=== PATIENT | female | born 2000 | race Caucasian/White ===

== ENCOUNTER 2021-04-01 16:08 | Emergency (ER) | payer OTHER, SELFPAY ==
[2021-04-01] VITALS (8 sets, daily range): BP systolic 116–140; BP diastolic 68–84; PULSE 91–105; RESP 18–24; TEMP 36.6; O2SAT 98–100
[2021-04-01] MEDS: LORazepam 2 MG/ML INJ 1 MG IV (16:16)
--- NOTE | 2021-04-01 16:16 | DI.CT.S_ITS ---
PROCEDURE: CT ANGIO ABDOMEN PELVIS INDICATIONS: Pain/trauma TECHNIQUE: After the administration of intravenous contrast, 2.5 mm thick sections acquired from the diaphragm to the symphysis. 10 mm maximum-intensity projection (MIP) reformats were then acquired. For radiation dose reduction, the following was used: automated exposure control. COMPARISON: [facility], US, US ABDOMEN COMPLETE, 07/08/2020, 12:54. FINDINGS: Image quality: Excellent. Aorta: Normal Mesenteric arteries: Celiac trunk, superior and inferior mesenteric arteries appear patent. Right pelvic arteries: Normal. Left pelvic arteries: The arteries adjacent to the left proximal femur trauma are scrutinized. No findings arterial laceration can be seen. No findings of active extravasation can be seen. Extravascular soft tissues: Lung bases are clear. Heart size is normal. Liver is normal in size and enhancement. Gallbladder wall is not thickened. Biliary system is non dilated. Pancreas enhances normally. Spleen is normal in size and enhancement. No adrenal nodules. Kidneys are normal in size and enhancement, without hydronephrosis. Incidental note is made of a circumaortic left renal vein. Non opacified bowel loops are normal in wall thickness and caliber. No free fluid or air. No retroperitoneal or mesenteric adenopathy. The uterus appears normal for age. No adnexal masses are seen. No ventral hernias. No suspicious bony lesions. No vertebral body compression fractures. There is a prominently comminuted fracture of the left proximal femur within the intertrochanteric region and within the proximal shaft. Associated soft tissue swelling with hematoma and joint effusion can be seen. IMPRESSION: Comminuted fracture of the left proximal femoral shaft and the intertrochanteric region. No associated arterial injury can be seen. No findings of extravasation of contrast can be seen. Hematoma and joint effusion can be seen associated with the fracture. Incidental note is made of: Circumaortic left renal vein Dictated by: Mello Muhammad M.D. on 04/01/2021 at 16:05 Approved by: Mello Muhammad M.D. on 04/01/2021 at 16:09
[2021-04-01] MEDS: SODIUM CHLORIDE 0.9% 1,000 ML 1000 ML IV (16:18)
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
[2021-04-01 16:38] LABS: Add Manual Diff / Slide Review NO; Basophils Absolute Auto 0 /uL (0-100); Basophils Percent Auto 0.3 % (0-2); Eosinophils Absolute Auto 0 /uL (0-450); Eosinophils Percent Auto 0.3 % (2-4); Hemoglobin 11.6 g/dL (12.0-16.0); Lymphocytes Absolute Auto 1600 /uL (1100-4500); Lymphocytes Percent Auto 14.6 % (25-40); Mean Corpuscular Hemoglobin 28.6 PG (26-34); Mean Corpuscular Volume 86.5 fL (80-100); Monocytes Absolute Auto 800 /uL (0-900); Monocytes Percent Auto 7.1 % (3-14); Neutrophils Absolute Auto 8700 /uL (1500-7000); Neutrophils Percent Auto 77.7 % (50-75); Platelet Count 316 X10^3/uL (150-400); Red Blood Cell Count 4.05 X10^6/uL (4.0-5.2); Red Cell Distribution Width 12.8 % (11.6-14.8); White Blood Cell Count 11.1 X10^3/uL (4.5-11.0)
[2021-04-01] MEDS: fentaNYL 100 MCG/2 ML INJ IV ×2 (16:40→19:21)
[2021-04-01 16:46] LABS: Pregnancy Test Serum,Qual Negative (Negative)
[2021-04-01 16:47] LABS: Alanine Aminotransferase 16 IU/L (<35); Albumin 3.8 g/dL (3.5-5.0); Albumin Globulin Ratio 1.1 (1.0-2.8); Alkaline Phosphatase 45 U/L (38-126); Aspartate Aminotransferase 25 IU/L (14-36); BUN Creatinine Ratio 23.5 (6-22); Blood Urea Nitrogen 12 mg/dL (7-17); Calcium 8.7 mg/dL (8.4-10.2); Carbon Dioxide 23 mmol/L (22-32); Chloride 106 mmol/L (98-107); Estimated Glomerular Filt Rate > 60.0 mL/min (>60); Globulin 3.4 g/dL (1.7-4.1); Glucose 98 mg/dL (70-100); HEMOLYSIS < 15 (0-50); Potassium 3.7 mmol/L (3.4-5.1); Sodium 137 mmol/L (137-145); Total Protein 7.2 g/dL (6.3-8.2)
[2021-04-01 16:56] LABS: Bilirubin Total < 0.1 mg/dL (0.2-1.3)
[2021-04-01 17:18] LABS: COVID19 -Nasal RAPID Negative (Negative)
[2021-04-01] MEDS: diazePAM 10 MG/2 ML SYRINGE 5 MG IV (17:33)
[2021-04-01] MEDS: fentaNYL 100 MCG/2 ML INJ 50 MCG IV (18:13)
== END 2021-04-01 19:31 | disposition short-term general hospital (02) ==
PROVIDERS: Emergency Provider Emergency Medicine
DX: S72.92XA Unspecified fracture of left femur, initial encounter for closed fracture (principal); Z20.822 Contact with and (suspected) exposure to COVID-19; W22.8XXA Striking against or struck by other objects, initial encounter
CPT/HCPCS: 36415; 74174; 80053; 84703; 85025; 87635; 96374; 96375; 96376; 99284; C9803; J2060; J3010; J3360; Q9967

== ENCOUNTER 2023-10-01 07:30 | Outpatient (RCR) | payer OTHER, SELFPAY ==
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
--- NOTE | 2023-08-28 16:05 | PT.OIE ---
Current Diagnoses Other chronic pain (08/28/23) Pain in left knee (08/28/23) Personal history of (healed) traumatic fracture (08/28/23) Visit Care Team Role Provider Type BENJA Duran, [employer] [facility] Family Provider Non-Staff Primary Care Provider Specialty: Family Practice Address: [address], [address], [place], [address] Email: BENJA Castrejon Attending Provider Non-Staff Referring Provider Specialty: Family Practice Address: [address] [place], [address] Email: Physical Therapy Initial Evaluation PT-OP-A Visit Information Start: 08/28/23 16:04 Freq: Status: Active Protocol: Document 08/28/23 16:05 AM (Rec: 08/28/23 17:38 AM [id number]) Out-Patient Physical Therapy Visit Information Visit Information Visit Type Initial Evaluation Visit Start Time 16:06 Visit Stop Time 16:51 Total Visit Minutes 45 Visit Number 1 Evaluation Information Evaluation Date 08/28/23 PT-OP-B Current Condition Start: 08/28/23 16:04 Freq: Status: Active Protocol: Document 08/28/23 16:05 AM (Rec: 08/28/23 17:38 AM [id number]) Current Condition History of Current Condition Onset Date 2 years ago Current Complaints L knee pain History of Current Condition Pt with femur fracture 2 years ago. Pt was ziplining and the system failed, causing fracture. Pt reports that her L knee has been sore recently. Pain is primarily on the medial side of her knee. Pt reports that ascending stairs and squatting are painful. Pt reports that she has tried to workout or run, though her knee starts hurting and she quits. Prior Treatments and Tests Pt with recent MRI that was negative. Prior Functional Status Baseline Function- ADL's Independent Baseline Function- Mobility Independent Current Functional Impairments (Reported) Functional Limitations- Mobility/Gait PT reports that she feels that she can walk as long as she wants to, though might have pain after. Pt would like to be able to run for exercise, though this feels uncomfortable. 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 PT-OP-C Subjective Start: 08/28/23 16:04 Freq: Status: Active Protocol: Document 08/28/23 16:05 AM (Rec: 08/28/23 17:38 AM [id number]) Patient Questionnaires Lymphedema Life Impact Score Lymphedema Score 65 Lymphedema Impairment 60 to 79% Impaired (Score 61- 75) OP-PT Pain Assessment Location Left Medial Knee Intensity 4 Scale Used Numeric (0 - 10) Description Aching Frequency Frequent Pain Duration Pt reports that her knee has been bothering her less recently. Pain Aggravating Factors Activity,Exercise,Walking, Stair Climbing Pain Alleviating Factors Inactivity PT-OP-D Balance Start: 08/28/23 16:04 Freq: Status: Active Protocol: Document 08/28/23 16:05 AM (Rec: 08/28/23 17:38 AM [id number]) Balance Tests Single Limb Standing Single Limb- Right 30 Single Limb- Left 30-no pain, though more report of unstable feeling PT-OP-E Functional Tests Start: 08/28/23 16:04 Freq: Status: Active Protocol: Document 08/28/23 16:05 AM (Rec: 08/28/23 17:38 AM [id number]) Functional Tests 30 Second Sit to Stand Test Score 13 PT-OP-G Mobility & Gait Start: 08/28/23 16:04 Freq: Status: Active Protocol: Document 08/28/23 16:05 AM (Rec: 08/28/23 17:38 AM [id number]) OP Gait Assessment Gait Gait Assistance Required: Independent Assistive Devices Assistive Device None Comments Gait Comments femoral MR PT-OP-J Posture/Palpation/Skin Start: 08/28/23 16:04 Freq: Status: Active Protocol: Document 08/28/23 16:05 AM (Rec: 08/28/23 17:38 AM [id number]) Posture Evaluation Position Standing Hip Posture (L) Internally Rotated,(R) Internally Rotated Knee Posture (L) Genu Recurvatum,(R) Genu Recurvatum,(L) Ext. Tibial Torsion,(R) Ext. Tibial Torsion Palpation Assessment Location knee Palpation Location medial joint line tenderness, adductors Palpation Findings Soft Tissue Tightness, Tenderness PT-OP-K Range of Motion Start: 08/28/23 16:04 Freq: Status: Active Protocol: Document 08/28/23 16:05 AM (Rec: 08/28/23 17:38 AM [id number]) Hip Goniometric Range of Motion Hip Right Passive Internal Rotation 40 External Rotation 45 Comments Prone for IR/ER Left Passive Flexion w/Knee Flexed 115 Internal Rotation 40 External Rotation 35 Comments prone for IR/ER Knee Goniometric Range of Motion Knee Right Knee ROM WFL Yes Flexion Active (degrees) 130 Left Knee ROM WFL Yes Patient Position Supine Flexion Active (degrees) 126 Extension Active (degrees) 0 PT-OP-M Strength Start: 08/28/23 16:04 Freq: Status: Active Protocol: Document 08/28/23 16:05 AM (Rec: 08/28/23 17:38 AM [id number]) Hip Strength Hip Manual Muscle Testing Right Flexion (L2) 4 Good Abduction 3+ Fair+ Adduction 5 Normal External Rotation 4- Good- Internal Rotation 4- Good- Left Flexion (L2) 3+ Fair+ Abduction 3 Fair Adduction 4+ Good+ External Rotation 3 Fair Internal Rotation 3 Fair Comments Pain with hip flexion, IR/ER Knee Strength Knee Manual Muscle Testing Right Flexion (S2) 4+ Good+ Extension (L3) 4+ Good+ Left Flexion (S2) 4- Good- Extension (L3) 4 Good PT-OP-Q Treatments Start: 08/28/23 16:04 Freq: Status: Active Protocol: Document 08/28/23 16:05 AM (Rec: 08/28/23 17:38 AM [id number]) Therapeutic Exercises Supine Exercises Bridge Resistance manual abd resistance, GTB give at home Reps/Minutes 10 Prone Exercises Prone quad stretch Side left Equipment Used gait belt, Pt given theraband with loop for home Sidelying Exercises clamshell Side left Reps/Minutes x5 Comments produced piriformis pain with radicular symptom Standing Exercises Hip abduction standing Side left Reps/Minutes x2 Comments Increased glute pain Self-Care/Home Management Treatment Education Patient Education Home Exercise Program Other Education massage adductor muscle, HEP given for quad stretch and bridge PT-OP-T Assessment and Plan Start: 08/28/23 16:04 Freq: Status: Active Protocol: Document 08/28/23 16:05 AM (Rec: 08/28/23 17:38 AM [id number]) Physical Therapy Assessment Rehab Potential Rehabilitation Potential Good Evaluation Complexity Number of Personal Factors/Comorbidities 0 Number of Body Systems Impaired 1-2 Clinical Presentation at Evaluation Stable Impairments Impairments Activity Tolerance,Balance, Functional Activities, Functional Mobility,Gait,Pain, Posture,ROM,Soft Tissue Mobility,Strength Goals Hip strength Impairment Pt with 3/5 hip IR, ER and glute med Short Term Goal (STG) Pt with 4- hip IR/ER and glute med strength STG Duration 09/25/23 Water Truck Driver Goal (LTG) Pt with 4/5-4+/5 hip strength. LTG Duration 10/23/23 Running Impairment Pt unable to run without production of pain at medial knee. Short Term Goal (STG) Pt able to interval run for 1 mile without increase in L knee pain. STG Duration 09/25/23 Shelter Goal (LTG) Pt able to run 1-2 miles without increase in L knee pain. LTG Duration 10/23/23 LEFS Impairment Pt with score of 65/80 on IE. Water Truck Driver Goal (LTG) Pt with score of 75/80 on LEFS LTG Duration 10/23/23 Assessment Summary Assessment Yadira Camp presents to PT secondary to L knee medial knee pain. Pt with hx of L femur fracture. Pt demonstrates weakness at hip rotators and glute med on L compared to R. Pt demonstrates patellar crepitus with close chain knee flexion. Pt with stiffness at L quad, likely contributing to patellar symptoms. Pt challenged with strengthening of L hip, secondary to pain at L glutes. Pt demonstrates limitations in L hip and knee compared to R. Pt with tenderness at medial joint line and along medial adductors. Pt with minimal valgus with squat, though demonstrates slight weightshift to R when squatting. Pt would benefit from continued PT to progress L hip/knee strength to decrease pain with functional and recreational activities. Physical Therapy Plan Frequency and Duration Frequency of Treatment 2x/Week Duration of treatment (weeks) 8 Plan of Care Start Date 08/28/23 Plan of Care End Date 10/23/23 Therapeutic Interventions Therapeutic Interventions Balance Training,Gait Training ,Home Exercise Program,Joint Mobilizations,Manual Therapy, Neuromuscular Re-education, Patient/Caregiver Education, Self-Care/Home Management,Soft Tissue Mobilization,Taping, Therapeutic Activities, Therapeutic Exercises Modalities Cold Pack/Ice Massage,Electric Stimulation,Hot Packs, Ultrasound Next Visit Focus/Plan Next Note Type Treatment Note Next Visit Plan further assess gait, including jogging; progress hip strength as tolerated
--- NOTE | 2023-09-03 16:07 | PT.OTN ---
Current Diagnoses Other chronic pain (09/03/23) Pain in left knee (09/03/23) Personal history of (healed) traumatic fracture (09/03/23) Physical Therapy Treatment Note PT-OP-A Visit Information Start: 08/28/23 16:04 Freq: Status: Active Protocol: Document 09/03/23 16:07 AM (Rec: 09/03/23 17:14 AM [id number]) Out-Patient Physical Therapy Visit Information Visit Information Visit Type Treatment Note Visit Start Time 16:07 Visit Stop Time 16:52 Total Visit Minutes 45 Visit Number 2 PT-OP-B Current Condition Start: 08/28/23 16:04 Freq: Status: Active Protocol: Document 09/03/23 16:07 AM (Rec: 09/03/23 17:14 AM [id number]) Current Condition History of Current Condition Onset Date 2 years ago Current Complaints L knee pain History of Current Condition Pt with femur fracture 2 years ago. Pt was ziplining and the system failed, causing fracture. Pt reports that her L knee has been sore recently. Pain is primarily on the medial side of her knee. Pt reports that ascending stairs and squatting are painful. Pt reports that she has tried to workout or run, though her knee starts hurting and she quits. Prior Treatments and Tests Pt with recent MRI that was negative. PT-OP-C Subjective Start: 08/28/23 16:04 Freq: Status: Active Protocol: Document 09/03/23 16:07 AM (Rec: 09/03/23 17:14 AM [id number]) OP-PT Subjective Patient Comments Patient Comments Pt reports that she might have overdid it on the quad stretch the first day, but has improved since then. PT-OP-D Balance Start: 08/28/23 16:04 Freq: Status: Active Protocol: Document 08/28/23 16:05 AM (Rec: 08/28/23 17:38 AM [id number]) Balance Tests Single Limb Standing Single Limb- Right 30 Single Limb- Left 30-no pain, though more report of unstable feeling PT-OP-E Functional Tests Start: 08/28/23 16:04 Freq: Status: Active Protocol: Document 08/28/23 16:05 AM (Rec: 08/28/23 17:38 AM [id number]) Functional Tests 30 Second Sit to Stand Test Score 13 PT-OP-G Mobility & Gait Start: 08/28/23 16:04 Freq: Status: Active Protocol: Document 08/28/23 16:05 AM (Rec: 08/28/23 17:38 AM [id number]) OP Gait Assessment Gait Gait Assistance Required: Independent Assistive Devices Assistive Device None Comments Gait Comments femoral MR PT-OP-J Posture/Palpation/Skin Start: 08/28/23 16:04 Freq: Status: Active Protocol: Document 08/28/23 16:05 AM (Rec: 08/28/23 17:38 AM [id number]) Posture Evaluation Position Standing Hip Posture (L) Internally Rotated,(R) Internally Rotated Knee Posture (L) Genu Recurvatum,(R) Genu Recurvatum,(L) Ext. Tibial Torsion,(R) Ext. Tibial Torsion Palpation Assessment Location knee Palpation Location medial joint line tenderness, adductors Palpation Findings Soft Tissue Tightness, Tenderness PT-OP-K Range of Motion Start: 08/28/23 16:04 Freq: Status: Active Protocol: Document 08/28/23 16:05 AM (Rec: 08/28/23 17:38 AM [id number]) Hip Goniometric Range of Motion Hip Right Passive Internal Rotation 40 External Rotation 45 Comments Prone for IR/ER Left Passive Flexion w/Knee Flexed 115 Internal Rotation 40 External Rotation 35 Comments prone for IR/ER Knee Goniometric Range of Motion Knee Right Knee ROM WFL Yes Flexion Active (degrees) 130 Left Knee ROM WFL Yes Patient Position Supine Flexion Active (degrees) 126 Extension Active (degrees) 0 PT-OP-M Strength Start: 08/28/23 16:04 Freq: Status: Active Protocol: Document 08/28/23 16:05 AM (Rec: 08/28/23 17:38 AM [id number]) Hip Strength Hip Manual Muscle Testing Right Flexion (L2) 4 Good Abduction 3+ Fair+ Adduction 5 Normal External Rotation 4- Good- Internal Rotation 4- Good- Left Flexion (L2) 3+ Fair+ Abduction 3 Fair Adduction 4+ Good+ External Rotation 3 Fair Internal Rotation 3 Fair Comments Pain with hip flexion, IR/ER Knee Strength Knee Manual Muscle Testing Right Flexion (S2) 4+ Good+ Extension (L3) 4+ Good+ Left Flexion (S2) 4- Good- Extension (L3) 4 Good PT-OP-Q Treatments Start: 08/28/23 16:04 Freq: Status: Active Protocol: Document 09/03/23 16:07 AM (Rec: 09/03/23 17:14 AM [id number]) Cardio Equipment Treadmill Duration (Minutes) 5 Speed 2.3 Incline 2.5 Gym Equipment Shuttle Recovery Unilateral squat Resistance 37# Reps/Time 2x10 Bilateral squat Resistance 50# Reps/Time 1x10, ball in between knees to encourage VMO Therapeutic Exercises Supine Exercises Quad set Equipment Used towel at knee Reps/Minutes 10x3 sec Figure 4 stretch Reps/Minutes 2x30 sec Comments PT assist Bent knee fall out Resistance PTB Reps/Minutes 2x10 Comments cues for pelvic stabilization and to not push into painful range Bridge Resistance BTB Reps/Minutes x10 Standing Exercises standing gastroc stretch Side bilateral Reps/Minutes x30 sec Standing TKE Side left Resistance BTB Equipment Used ball and BTB Comments ball behind knee with cues for TKE control vs hyperextension Step-up Side bilateral Equipment Used 4 in Reps/Minutes x5 Comments increased medial knee pain with UE support PT-OP-T Assessment and Plan Start: 08/28/23 16:04 Freq: Status: Active Protocol: Document 09/03/23 16:07 AM (Rec: 09/03/23 17:14 AM [id number]) Physical Therapy Assessment Goals Hip strength Impairment Pt with 3/5 hip IR, ER and glute med Short Term Goal (STG) Pt with 4- hip IR/ER and glute med strength STG Duration 09/25/23 Halfway Goal (LTG) Pt with 4/5-4+/5 hip strength. LTG Duration 10/23/23 Running Impairment Pt unable to run without production of pain at medial knee. Short Term Goal (STG) Pt able to interval run for 1 mile without increase in L knee pain. STG Duration 09/25/23 Halfway Goal (LTG) Pt able to run 1-2 miles without increase in L knee pain. LTG Duration 10/23/23 LEFS Impairment Pt with score of 65/80 on IE. Food Service Manager Goal (LTG) Pt with score of 75/80 on LEFS LTG Duration 10/23/23 Assessment Summary Assessment Pt demonstrates difficulty with knee control, while avoiding hyperextension and locking. This improved with training today. Pt demonstrates weakness into hip ER ROM. Pt demonstrates stiffness at bilateral gastroc with L stiffer than R, which might contribute to tibial ER. PT encouraged pt to obtain off the shelf orthotics to improve ankle/foot control and decrease pronation. Pt would benefit from continued PT to progress L LE strength and mobility as tolerated. Physical Therapy Plan Frequency and Duration Frequency of Treatment 2x/Week Duration of treatment (weeks) 8 Plan of Care Start Date 08/28/23 Plan of Care End Date 10/23/23 Therapeutic Interventions Therapeutic Interventions Balance Training,Gait Training ,Home Exercise Program,Joint Mobilizations,Manual Therapy, Neuromuscular Re-education, Patient/Caregiver Education, Self-Care/Home Management,Soft Tissue Mobilization,Taping, Therapeutic Activities, Therapeutic Exercises Modalities Cold Pack/Ice Massage,Electric Stimulation,Hot Packs, Ultrasound Next Visit Focus/Plan Next Note Type Treatment Note Next Visit Plan Trial KT, continue to improve knee control with decreased hyperextension, increase L hip ER mobility and strength as tolerated
--- NOTE | 2023-09-05 16:48 | PT.OTN ---
Current Diagnoses Other chronic pain (09/05/23) Pain in left knee (09/05/23) Personal history of (healed) traumatic fracture (09/05/23) Physical Therapy Treatment Note PT-OP-A Visit Information Start: 08/28/23 16:04 Freq: Status: Active Protocol: Document 09/05/23 16:06 AM (Rec: 09/05/23 17:00 AM [id number]) Out-Patient Physical Therapy Visit Information Visit Information Visit Type Treatment Note Visit Start Time 16:03 Visit Stop Time 16:48 Total Visit Minutes 45 Visit Number 3 PT-OP-B Current Condition Start: 08/28/23 16:04 Freq: Status: Active Protocol: Document 09/03/23 16:07 AM (Rec: 09/03/23 17:14 AM [id number]) Current Condition History of Current Condition Onset Date 2 years ago Current Complaints L knee pain History of Current Condition Pt with femur fracture 2 years ago. Pt was ziplining and the system failed, causing fracture. Pt reports that her L knee has been sore recently. Pain is primarily on the medial side of her knee. Pt reports that ascending stairs and squatting are painful. Pt reports that she has tried to workout or run, though her knee starts hurting and she quits. Prior Treatments and Tests Pt with recent MRI that was negative. PT-OP-C Subjective Start: 08/28/23 16:04 Freq: Status: Active Protocol: Document 09/05/23 16:06 AM (Rec: 09/05/23 17:00 AM [id number]) OP-PT Subjective Patient Comments Patient Comments Pt reports that she had a sharp increase in pain today after lunch. She is unsure what triggered it, but it has been painful since. PT-OP-D Balance Start: 08/28/23 16:04 Freq: Status: Active Protocol: Document 08/28/23 16:05 AM (Rec: 08/28/23 17:38 AM [id number]) Balance Tests Single Limb Standing Single Limb- Right 30 Single Limb- Left 30-no pain, though more report of unstable feeling PT-OP-E Functional Tests Start: 08/28/23 16:04 Freq: Status: Active Protocol: Document 08/28/23 16:05 AM (Rec: 08/28/23 17:38 AM [id number]) Functional Tests 30 Second Sit to Stand Test Score 13 PT-OP-G Mobility & Gait Start: 08/28/23 16:04 Freq: Status: Active Protocol: Document 08/28/23 16:05 AM (Rec: 08/28/23 17:38 AM [id number]) OP Gait Assessment Gait Gait Assistance Required: Independent Assistive Devices Assistive Device None Comments Gait Comments femoral MR PT-OP-J Posture/Palpation/Skin Start: 08/28/23 16:04 Freq: Status: Active Protocol: Document 08/28/23 16:05 AM (Rec: 08/28/23 17:38 AM [id number]) Posture Evaluation Position Standing Hip Posture (L) Internally Rotated,(R) Internally Rotated Knee Posture (L) Genu Recurvatum,(R) Genu Recurvatum,(L) Ext. Tibial Torsion,(R) Ext. Tibial Torsion Palpation Assessment Location knee Palpation Location medial joint line tenderness, adductors Palpation Findings Soft Tissue Tightness, Tenderness PT-OP-K Range of Motion Start: 08/28/23 16:04 Freq: Status: Active Protocol: Document 08/28/23 16:05 AM (Rec: 08/28/23 17:38 AM [id number]) Hip Goniometric Range of Motion Hip Right Passive Internal Rotation 40 External Rotation 45 Comments Prone for IR/ER Left Passive Flexion w/Knee Flexed 115 Internal Rotation 40 External Rotation 35 Comments prone for IR/ER Knee Goniometric Range of Motion Knee Right Knee ROM WFL Yes Flexion Active (degrees) 130 Left Knee ROM WFL Yes Patient Position Supine Flexion Active (degrees) 126 Extension Active (degrees) 0 PT-OP-M Strength Start: 08/28/23 16:04 Freq: Status: Active Protocol: Document 08/28/23 16:05 AM (Rec: 08/28/23 17:38 AM [id number]) Hip Strength Hip Manual Muscle Testing Right Flexion (L2) 4 Good Abduction 3+ Fair+ Adduction 5 Normal External Rotation 4- Good- Internal Rotation 4- Good- Left Flexion (L2) 3+ Fair+ Abduction 3 Fair Adduction 4+ Good+ External Rotation 3 Fair Internal Rotation 3 Fair Comments Pain with hip flexion, IR/ER Knee Strength Knee Manual Muscle Testing Right Flexion (S2) 4+ Good+ Extension (L3) 4+ Good+ Left Flexion (S2) 4- Good- Extension (L3) 4 Good PT-OP-Q Treatments Start: 08/28/23 16:04 Freq: Status: Active Protocol: Document 09/05/23 16:06 AM (Rec: 09/05/23 17:00 AM [id number]) Cardio Equipment Bicycle (Upright) Duration (Minutes) 5 Resistance 7 Seat Position 3 Gym Equipment Shuttle Recovery Unilateral squat Resistance 37#-25 Reps/Time x10, knee pain with 37# today, therefore decreased Bilateral squat Resistance 50# Reps/Time 2x10, ball in between knees to encourage VMO Therapeutic Exercises Supine Exercises Quad set Equipment Used towel at knee Reps/Minutes 10x3 sec Bent knee fall out Resistance Deuel TB Reps/Minutes 2x10 Comments cues for pelvic stabilization and to not push into painful range Bridge Resistance Deuel TB Reps/Minutes x10 Standing Exercises Hip extension Side bilateral Equipment Used railing Reps/Minutes x10 standing gastroc stretch Standing Exercise Name and soleus Side bilateral Equipment Used TY Reps/Minutes 2x30 sec Hip abduction standing Side bilateral Equipment Used railing Reps/Minutes x10 Manual Therapy Treatment Soft Tissue Mobilization Quads Body Location Rolling L quads Mobilization Type Instrument Assisted,Rolling Intensity/Depth Moderate Manual Techniques Chris stretch Type Chris stretch Body Location Jacob quads/hip flexors Body Position Supine Reps/Duration 2x30 sec ea LE PT-OP-T Assessment and Plan Start: 08/28/23 16:04 Freq: Status: Active Protocol: Document 09/05/23 16:06 AM (Rec: 09/05/23 17:00 AM [id number]) Physical Therapy Assessment Goals Hip strength Impairment Pt with 3/5 hip IR, ER and glute med Short Term Goal (STG) Pt with 4- hip IR/ER and glute med strength STG Duration 09/25/23 Machine Heel Seat Laster Goal (LTG) Pt with 4/5-4+/5 hip strength. LTG Duration 10/23/23 Running Impairment Pt unable to run without production of pain at medial knee. Short Term Goal (STG) Pt able to interval run for 1 mile without increase in L knee pain. STG Duration 09/25/23 Machine Heel Seat Laster Goal (LTG) Pt able to run 1-2 miles without increase in L knee pain. LTG Duration 10/23/23 LEFS Impairment Pt with score of 65/80 on IE. Fpc Goal (LTG) Pt with score of 75/80 on LEFS LTG Duration 10/23/23 Assessment Summary Assessment Pt with improving awareness of TKE quad control. Pt with tenderness along distal quad. Pt with discomfort at medial knee with assessment of patellar mobility in all directions. Pt demonstrates stiffness of hip flexors/quad jacob, with L stiffer than R. Pt with reported reduction in pain following tx session today. KT test strip applied to L medial calf. Pt instructed to remove if itchy. Physical Therapy Plan Frequency and Duration Frequency of Treatment 2x/Week Duration of treatment (weeks) 8 Plan of Care Start Date 08/28/23 Plan of Care End Date 10/23/23 Therapeutic Interventions Therapeutic Interventions Balance Training,Gait Training ,Home Exercise Program,Joint Mobilizations,Manual Therapy, Neuromuscular Re-education, Patient/Caregiver Education, Self-Care/Home Management,Soft Tissue Mobilization,Taping, Therapeutic Activities, Therapeutic Exercises Modalities Cold Pack/Ice Massage,Electric Stimulation,Hot Packs, Ultrasound Next Visit Focus/Plan Next Note Type Treatment Note Next Visit Plan Trial KT, continue to improve knee control with decreased hyperextension, increase L hip ER mobility and strength as tolerated
--- NOTE | 2023-09-11 16:06 | PT.OTN ---
Current Diagnoses Other chronic pain (09/11/23) Pain in left knee (09/11/23) Personal history of (healed) traumatic fracture (09/11/23) Physical Therapy Treatment Note PT-OP-A Visit Information Start: 08/28/23 16:04 Freq: Status: Active Protocol: Document 09/11/23 16:08 AM (Rec: 09/11/23 17:06 AM [id number]) Out-Patient Physical Therapy Visit Information Visit Information Visit Type Treatment Note Visit Start Time 16:06 Visit Stop Time 16:51 Total Visit Minutes 45 Visit Number 4/15 PT-OP-B Current Condition Start: 08/28/23 16:04 Freq: Status: Active Protocol: Document 09/03/23 16:07 AM (Rec: 09/03/23 17:14 AM [id number]) Current Condition History of Current Condition Onset Date 2 years ago Current Complaints L knee pain History of Current Condition Pt with femur fracture 2 years ago. Pt was ziplining and the system failed, causing fracture. Pt reports that her L knee has been sore recently. Pain is primarily on the medial side of her knee. Pt reports that ascending stairs and squatting are painful. Pt reports that she has tried to workout or run, though her knee starts hurting and she quits. Prior Treatments and Tests Pt with recent MRI that was negative. PT-OP-C Subjective Start: 08/28/23 16:04 Freq: Status: Active Protocol: Document 09/11/23 16:08 AM (Rec: 09/11/23 17:06 AM [id number]) OP-PT Subjective Patient Comments Patient Comments Pt reports that she has not had pain since previous session. Pt reports that she has been focusing on decreasing knee hyperextension . PT-OP-D Balance Start: 08/28/23 16:04 Freq: Status: Active Protocol: Document 08/28/23 16:05 AM (Rec: 08/28/23 17:38 AM [id number]) Balance Tests Single Limb Standing Single Limb- Right 30 Single Limb- Left 30-no pain, though more report of unstable feeling PT-OP-E Functional Tests Start: 08/28/23 16:04 Freq: Status: Active Protocol: Document 08/28/23 16:05 AM (Rec: 08/28/23 17:38 AM [id number]) Functional Tests 30 Second Sit to Stand Test Score 13 PT-OP-G Mobility & Gait Start: 08/28/23 16:04 Freq: Status: Active Protocol: Document 08/28/23 16:05 AM (Rec: 08/28/23 17:38 AM [id number]) OP Gait Assessment Gait Gait Assistance Required: Independent Assistive Devices Assistive Device None Comments Gait Comments femoral MR PT-OP-J Posture/Palpation/Skin Start: 08/28/23 16:04 Freq: Status: Active Protocol: Document 08/28/23 16:05 AM (Rec: 08/28/23 17:38 AM [id number]) Posture Evaluation Position Standing Hip Posture (L) Internally Rotated,(R) Internally Rotated Knee Posture (L) Genu Recurvatum,(R) Genu Recurvatum,(L) Ext. Tibial Torsion,(R) Ext. Tibial Torsion Palpation Assessment Location knee Palpation Location medial joint line tenderness, adductors Palpation Findings Soft Tissue Tightness, Tenderness PT-OP-K Range of Motion Start: 08/28/23 16:04 Freq: Status: Active Protocol: Document 08/28/23 16:05 AM (Rec: 08/28/23 17:38 AM [id number]) Hip Goniometric Range of Motion Hip Right Passive Internal Rotation 40 External Rotation 45 Comments Prone for IR/ER Left Passive Flexion w/Knee Flexed 115 Internal Rotation 40 External Rotation 35 Comments prone for IR/ER Knee Goniometric Range of Motion Knee Right Knee ROM WFL Yes Flexion Active (degrees) 130 Left Knee ROM WFL Yes Patient Position Supine Flexion Active (degrees) 126 Extension Active (degrees) 0 PT-OP-M Strength Start: 08/28/23 16:04 Freq: Status: Active Protocol: Document 08/28/23 16:05 AM (Rec: 08/28/23 17:38 AM [id number]) Hip Strength Hip Manual Muscle Testing Right Flexion (L2) 4 Good Abduction 3+ Fair+ Adduction 5 Normal External Rotation 4- Good- Internal Rotation 4- Good- Left Flexion (L2) 3+ Fair+ Abduction 3 Fair Adduction 4+ Good+ External Rotation 3 Fair Internal Rotation 3 Fair Comments Pain with hip flexion, IR/ER Knee Strength Knee Manual Muscle Testing Right Flexion (S2) 4+ Good+ Extension (L3) 4+ Good+ Left Flexion (S2) 4- Good- Extension (L3) 4 Good PT-OP-Q Treatments Start: 08/28/23 16:04 Freq: Status: Active Protocol: Document 09/11/23 16:08 AM (Rec: 09/11/23 17:06 AM [id number]) Cardio Equipment Recumbent Bicycle Duration (Minutes) 5 Resistance 7 Seat Position 3 Gym Equipment Shuttle Recovery Unilateral squat Resistance 25 Reps/Time x10, knee pain with 37# today, therefore decreased Bilateral squat Resistance 50# Reps/Time 2x10, ball in between knees to encourage VMO Therapeutic Exercises Supine Exercises SAQ Supine Exercise Name Caused patellar tendon pain Figure 4 stretch Reps/Minutes 2x30 sec Comments PT assist Bent knee fall out Resistance [place] TB Reps/Minutes 2x10 Comments cues for pelvic stabilization and to not push into painful range Bridge Resistance [place] TB Reps/Minutes x10 Standing Exercises Hip extension Side bilateral Resistance [place] TB Equipment Used railing Reps/Minutes x10 Hip abduction standing Side bilateral Resistance [place] TB Equipment Used railing Reps/Minutes x10 Manual Therapy Treatment Soft Tissue Mobilization Quads Body Location Rolling L quads Mobilization Type Instrument Assisted,Rolling Intensity/Depth Moderate Taping L patellar stab Treatment Focus patellar stab Type of Tape Kinesio Tape Skin Inspection Pt without adverse reaction from KT test strip Comments 1 I bands PT-OP-T Assessment and Plan Start: 08/28/23 16:04 Freq: Status: Active Protocol: Document 09/11/23 16:08 AM (Rec: 09/11/23 17:06 AM [id number]) Physical Therapy Assessment Goals Hip strength Impairment Pt with 3/5 hip IR, ER and glute med Short Term Goal (STG) Pt with 4- hip IR/ER and glute med strength STG Duration 09/25/23 Power Chisel Operator Goal (LTG) Pt with 4/5-4+/5 hip strength. LTG Duration 10/23/23 Running Impairment Pt unable to run without production of pain at medial knee. Short Term Goal (STG) Pt able to interval run for 1 mile without increase in L knee pain. STG Duration 09/25/23 Power Chisel Operator Goal (LTG) Pt able to run 1-2 miles without increase in L knee pain. LTG Duration 10/23/23 LEFS Impairment Pt with score of 65/80 on IE. Mcc Goal (LTG) Pt with score of 75/80 on LEFS LTG Duration 10/23/23 Assessment Summary Assessment Pt tolerated PRE well today. Pt with reported patellar tendon pain with SAQ. Pt demonstrated PTP at L patellar tendon. Pt with improving control into TKE with shuttle squats. Pt demonstrates improving tolerance to glute strengthening on L. Pt would benefit from continued PT to progress L LE strength and functional mobility. Physical Therapy Plan Frequency and Duration Frequency of Treatment 2x/Week Duration of treatment (weeks) 8 Plan of Care Start Date 08/28/23 Plan of Care End Date 10/23/23 Therapeutic Interventions Therapeutic Interventions Balance Training,Gait Training ,Home Exercise Program,Joint Mobilizations,Manual Therapy, Neuromuscular Re-education, Patient/Caregiver Education, Self-Care/Home Management,Soft Tissue Mobilization,Taping, Therapeutic Activities, Therapeutic Exercises Modalities Cold Pack/Ice Massage,Electric Stimulation,Hot Packs, Ultrasound Next Visit Focus/Plan Next Note Type Treatment Note Next Visit Plan Trial KT, continue to improve knee control with decreased hyperextension, increase L hip ER mobility and strength as tolerated
--- NOTE | 2023-09-17 15:21 | PT.OTN ---
Current Diagnoses Other chronic pain (09/17/23) Pain in left knee (09/17/23) Personal history of (healed) traumatic fracture (09/17/23) Physical Therapy Treatment Note PT-OP-A Visit Information Start: 08/28/23 16:04 Freq: Status: Active Protocol: Document 09/17/23 15:21 AM (Rec: 09/17/23 16:13 AM [id number]) Out-Patient Physical Therapy Visit Information Visit Information Visit Type Treatment Note Visit Start Time 15:19 Visit Stop Time 16:02 Total Visit Minutes 43 Visit Number 03/17 PT-OP-B Current Condition Start: 08/28/23 16:04 Freq: Status: Active Protocol: Document 09/03/23 16:07 AM (Rec: 09/03/23 17:14 AM [id number]) Current Condition History of Current Condition Onset Date 2 years ago Current Complaints L knee pain History of Current Condition Pt with femur fracture 2 years ago. Pt was ziplining and the system failed, causing fracture. Pt reports that her L knee has been sore recently. Pain is primarily on the medial side of her knee. Pt reports that ascending stairs and squatting are painful. Pt reports that she has tried to workout or run, though her knee starts hurting and she quits. Prior Treatments and Tests Pt with recent MRI that was negative. PT-OP-C Subjective Start: 08/28/23 16:04 Freq: Status: Active Protocol: Document 09/17/23 15:21 AM (Rec: 09/17/23 16:13 AM [id number]) OP-PT Subjective Patient Comments Patient Comments Pt reports that she was a little sore over the weekend. She was playing with young niece and nephew, which required her to get on and off of the floor. Pt reports that her knee has felt good the last few days. PT-OP-D Balance Start: 08/28/23 16:04 Freq: Status: Active Protocol: Document 08/28/23 16:05 AM (Rec: 08/28/23 17:38 AM [id number]) Balance Tests Single Limb Standing Single Limb- Right 30 Single Limb- Left 30-no pain, though more report of unstable feeling PT-OP-E Functional Tests Start: 08/28/23 16:04 Freq: Status: Active Protocol: Document 08/28/23 16:05 AM (Rec: 08/28/23 17:38 AM [id number]) Functional Tests 30 Second Sit to Stand Test Score 13 PT-OP-G Mobility & Gait Start: 08/28/23 16:04 Freq: Status: Active Protocol: Document 08/28/23 16:05 AM (Rec: 08/28/23 17:38 AM [id number]) OP Gait Assessment Gait Gait Assistance Required: Independent Assistive Devices Assistive Device None Comments Gait Comments femoral MR PT-OP-J Posture/Palpation/Skin Start: 08/28/23 16:04 Freq: Status: Active Protocol: Document 08/28/23 16:05 AM (Rec: 08/28/23 17:38 AM [id number]) Posture Evaluation Position Standing Hip Posture (L) Internally Rotated,(R) Internally Rotated Knee Posture (L) Genu Recurvatum,(R) Genu Recurvatum,(L) Ext. Tibial Torsion,(R) Ext. Tibial Torsion Palpation Assessment Location knee Palpation Location medial joint line tenderness, adductors Palpation Findings Soft Tissue Tightness, Tenderness PT-OP-K Range of Motion Start: 08/28/23 16:04 Freq: Status: Active Protocol: Document 08/28/23 16:05 AM (Rec: 08/28/23 17:38 AM [id number]) Hip Goniometric Range of Motion Hip Right Passive Internal Rotation 40 External Rotation 45 Comments Prone for IR/ER Left Passive Flexion w/Knee Flexed 115 Internal Rotation 40 External Rotation 35 Comments prone for IR/ER Knee Goniometric Range of Motion Knee Right Knee ROM WFL Yes Flexion Active (degrees) 130 Left Knee ROM WFL Yes Patient Position Supine Flexion Active (degrees) 126 Extension Active (degrees) 0 PT-OP-M Strength Start: 08/28/23 16:04 Freq: Status: Active Protocol: Document 08/28/23 16:05 AM (Rec: 08/28/23 17:38 AM [id number]) Hip Strength Hip Manual Muscle Testing Right Flexion (L2) 4 Good Abduction 3+ Fair+ Adduction 5 Normal External Rotation 4- Good- Internal Rotation 4- Good- Left Flexion (L2) 3+ Fair+ Abduction 3 Fair Adduction 4+ Good+ External Rotation 3 Fair Internal Rotation 3 Fair Comments Pain with hip flexion, IR/ER Knee Strength Knee Manual Muscle Testing Right Flexion (S2) 4+ Good+ Extension (L3) 4+ Good+ Left Flexion (S2) 4- Good- Extension (L3) 4 Good PT-OP-Q Treatments Start: 08/28/23 16:04 Freq: Status: Active Protocol: Document 09/17/23 15:21 AM (Rec: 09/17/23 16:13 AM [id number]) Cardio Equipment Bicycle (Upright) Duration (Minutes) 5 Resistance 7 Seat Position 3 Gym Equipment Shuttle Recovery Unilateral squat Resistance 25 Shuttle Recovery Platform Stable Bilateral squat Resistance 50# Reps/Time 2x10, ball in between knees to encourage VMO Therapeutic Exercises Standing Exercises Side step Side bilateral Resistance [place] TB Reps/Minutes 2x20 ft Hip extension Side bilateral Resistance [place] TB Equipment Used railing Reps/Minutes 2x10 standing gastroc stretch Standing Exercise Name and soleus Side bilateral Equipment Used TY Reps/Minutes 2x30 sec Hip abduction standing Side bilateral Resistance [place] TB Equipment Used railing Reps/Minutes 2x10 Manual Therapy Treatment Soft Tissue Mobilization Quads Body Location Rolling L quads Mobilization Type Instrument Assisted,Rolling Intensity/Depth Moderate Joint Mobilizations Patellar mob Joint L Direction Inf glide Grade III Body Position Supine Manual Techniques Chris stretch Type Chris stretch Body Location Jacob quads/hip flexors Body Position Supine Reps/Duration 2x30 sec ea LE PT-OP-T Assessment and Plan Start: 08/28/23 16:04 Freq: Status: Active Protocol: Document 09/17/23 15:21 AM (Rec: 09/17/23 16:13 AM [id number]) Physical Therapy Assessment Goals Hip strength Impairment Pt with 3/5 hip IR, ER and glute med Short Term Goal (STG) Pt with 4- hip IR/ER and glute med strength STG Duration 09/25/23 Correction Goal (LTG) Pt with 4/5-4+/5 hip strength. LTG Duration 10/23/23 Running Impairment Pt unable to run without production of pain at medial knee. Short Term Goal (STG) Pt able to interval run for 1 mile without increase in L knee pain. STG Duration 09/25/23 Correction Goal (LTG) Pt able to run 1-2 miles without increase in L knee pain. LTG Duration 10/23/23 LEFS Impairment Pt with score of 65/80 on IE. Crime Lab Technician Goal (LTG) Pt with score of 75/80 on LEFS LTG Duration 10/23/23 Assessment Summary Assessment Pt tolerated PRE well, without production of increased symptoms. Pt demonstrates continued stiffness at jacob hip flexors with manual stretching. Pt demonstrated femoral MR on L with trial of elliptical, though denied pain . Pt will return to PT later this week to continued to progress LE strength and mobility for higher level functional and recreational tasks. Physical Therapy Plan Frequency and Duration Frequency of Treatment 2x/Week Duration of treatment (weeks) 8 Plan of Care Start Date 08/28/23 Plan of Care End Date 10/23/23 Therapeutic Interventions Therapeutic Interventions Balance Training,Gait Training ,Home Exercise Program,Joint Mobilizations,Manual Therapy, Neuromuscular Re-education, Patient/Caregiver Education, Self-Care/Home Management,Soft Tissue Mobilization,Taping, Therapeutic Activities, Therapeutic Exercises Modalities Cold Pack/Ice Massage,Electric Stimulation,Hot Packs, Ultrasound Next Visit Focus/Plan Next Note Type Progress Note Next Visit Plan assess treadmill jogging intervals, reassess goals and progress, assess step up
--- NOTE | 2023-09-19 15:19 | PT.OTN ---
Current Diagnoses Other chronic pain (09/19/23) Pain in left knee (09/19/23) Personal history of (healed) traumatic fracture (09/19/23) Physical Therapy Treatment Note PT-OP-A Visit Information Start: 08/28/23 16:04 Freq: Status: Active Protocol: Document 09/19/23 15:19 AM (Rec: 09/19/23 16:26 AM [id number]) Out-Patient Physical Therapy Visit Information Visit Information Visit Type Progress Note Visit Start Time 15:19 Visit Stop Time 16:00 Total Visit Minutes 41 Visit Number 04/17 PT-OP-B Current Condition Start: 08/28/23 16:04 Freq: Status: Active Protocol: Document 09/03/23 16:07 AM (Rec: 09/03/23 17:14 AM [id number]) Current Condition History of Current Condition Onset Date 2 years ago Current Complaints L knee pain History of Current Condition Pt with femur fracture 2 years ago. Pt was ziplining and the system failed, causing fracture. Pt reports that her L knee has been sore recently. Pain is primarily on the medial side of her knee. Pt reports that ascending stairs and squatting are painful. Pt reports that she has tried to workout or run, though her knee starts hurting and she quits. Prior Treatments and Tests Pt with recent MRI that was negative. PT-OP-C Subjective Start: 08/28/23 16:04 Freq: Status: Active Protocol: Document 09/19/23 15:19 AM (Rec: 09/19/23 16:26 AM [id number]) OP-PT Subjective Patient Comments Patient Comments Pt reports that she feels stiff today, though reports that she feels stiff at her arms also. She is unsure of the cause. Pt reports that she feels that she has had increase clamshell mobility. PT-OP-D Balance Start: 08/28/23 16:04 Freq: Status: Active Protocol: Document 08/28/23 16:05 AM (Rec: 08/28/23 17:38 AM [id number]) Balance Tests Single Limb Standing Single Limb- Right 30 Single Limb- Left 30-no pain, though more report of unstable feeling PT-OP-E Functional Tests Start: 08/28/23 16:04 Freq: Status: Active Protocol: Document 08/28/23 16:05 AM (Rec: 08/28/23 17:38 AM [id number]) Functional Tests 30 Second Sit to Stand Test Score 13 PT-OP-G Mobility & Gait Start: 08/28/23 16:04 Freq: Status: Active Protocol: Document 08/28/23 16:05 AM (Rec: 08/28/23 17:38 AM [id number]) OP Gait Assessment Gait Gait Assistance Required: Independent Assistive Devices Assistive Device None Comments Gait Comments femoral MR PT-OP-J Posture/Palpation/Skin Start: 08/28/23 16:04 Freq: Status: Active Protocol: Document 08/28/23 16:05 AM (Rec: 08/28/23 17:38 AM [id number]) Posture Evaluation Position Standing Hip Posture (L) Internally Rotated,(R) Internally Rotated Knee Posture (L) Genu Recurvatum,(R) Genu Recurvatum,(L) Ext. Tibial Torsion,(R) Ext. Tibial Torsion Palpation Assessment Location knee Palpation Location medial joint line tenderness, adductors Palpation Findings Soft Tissue Tightness, Tenderness PT-OP-K Range of Motion Start: 08/28/23 16:04 Freq: Status: Active Protocol: Document 08/28/23 16:05 AM (Rec: 08/28/23 17:38 AM [id number]) Hip Goniometric Range of Motion Hip Right Passive Internal Rotation 40 External Rotation 45 Comments Prone for IR/ER Left Passive Flexion w/Knee Flexed 115 Internal Rotation 40 External Rotation 35 Comments prone for IR/ER Knee Goniometric Range of Motion Knee Right Knee ROM WFL Yes Flexion Active (degrees) 130 Left Knee ROM WFL Yes Patient Position Supine Flexion Active (degrees) 126 Extension Active (degrees) 0 PT-OP-M Strength Start: 08/28/23 16:04 Freq: Status: Active Protocol: Document 09/19/23 15:19 AM (Rec: 09/19/23 16:26 AM [id number]) Hip Strength Hip Manual Muscle Testing Left Flexion (L2) 4- Good- Abduction 3+ Fair+ External Rotation 3+ Fair+ Internal Rotation 3+ Fair+ Comments glute med 3+ No pain with IR/ER testing PT-OP-Q Treatments Start: 08/28/23 16:04 Freq: Status: Active Protocol: Document 09/19/23 15:19 AM (Rec: 09/19/23 16:26 AM [id number]) Cardio Equipment Bicycle (Upright) Duration (Minutes) 5 Resistance 8 Seat Position 3 Treadmill Duration (Minutes) 4 Speed 2.3-4.5 Incline .5 Other walk/jog interval Gym Equipment Shuttle Recovery Unilateral squat Resistance 25 Shuttle Recovery Platform Stable Reps/Time Uncomfortable at beginning of session. Improved tolerance with KT Bilateral squat Resistance 50# Reps/Time 2x10, ball in between knees to encourage VMO Therapeutic Exercises Supine Exercises Bridge Side bilateral Reps/Minutes x10 Comments unilateral bridge Sidelying Exercises Sidelying SLR Sidelying Exercise Name Assisted by PT with movement to decrease hip flexion Reps/Minutes x10 Manual Therapy Treatment Soft Tissue Mobilization Quads Body Location Rolling L quads Mobilization Type Instrument Assisted,Rolling Intensity/Depth Moderate Joint Mobilizations Patellar mob Joint L Direction Inf glide Grade III Body Position Supine Taping L patellar stab Treatment Focus patellar stab Type of Tape Kinesio Tape Skin Inspection Pt without adverse reaction from KT test strip Comments 1 I bands at lateral knee Manual Techniques Chris stretch Type Chris stretch Body Location Jacob quads/hip flexors Body Position Supine Reps/Duration 2x30 sec ea LE Self-Care/Home Management Treatment Education Other Education Discussed OTC orthotic to improve foot alignment and decrease knee valgus with running. PT-OP-T Assessment and Plan Start: 08/28/23 16:04 Freq: Status: Active Protocol: Document 09/19/23 15:19 AM (Rec: 09/19/23 16:26 AM [id number]) Physical Therapy Assessment Goals Hip strength Impairment Pt with 3/5 hip IR, ER and glute med Short Term Goal (STG) Pt with 4- hip IR/ER and glute med strength 09/19/23: 3+ hip IR/ER and glute med STG Duration 09/25/23 Screw Remover Goal (LTG) Pt with 4/5-4+/5 hip strength. LTG Duration 10/23/23 Running Impairment Pt unable to run without production of pain at medial knee. Short Term Goal (STG) Pt able to interval run for 1 mile without increase in L knee pain. STG Duration 09/25/23 Mcfp Goal (LTG) Pt able to run 1-2 miles without increase in L knee pain. LTG Duration 10/23/23 LEFS Impairment Pt with score of 65/80 on IE. Screw Remover Goal (LTG) Pt with score of 75/80 on LEFS LTG Duration 10/23/23 Assessment Summary Assessment Pt with reduction of medial knee symptoms on shuttle squats following stretching manual therapy and KT. Pt demonstrates improving glute strength since start of PT. PT assessed jogging interval on treadmill, though pt reported increase in bilateral knee symptoms. Pt demonstrates jacob femoral MR and knee valgus with R worse than L. PT recommended OTC orthotics for improved support at ankle/feet to decrease knee valgus during running gait. Pt with increased stiffness at hip flexors today compared to previous session. Pt would benefit from continued PT to progress knee/hip mobility/ strength for higher level functional and recreational tasks. Physical Therapy Plan Frequency and Duration Frequency of Treatment 2x/Week Duration of treatment (weeks) 8 Plan of Care Start Date 08/28/23 Plan of Care End Date 10/23/23 Therapeutic Interventions Therapeutic Interventions Balance Training,Gait Training ,Home Exercise Program,Joint Mobilizations,Manual Therapy, Neuromuscular Re-education, Patient/Caregiver Education, Self-Care/Home Management,Soft Tissue Mobilization,Taping, Therapeutic Activities, Therapeutic Exercises Modalities Cold Pack/Ice Massage,Electric Stimulation,Hot Packs, Ultrasound Next Visit Focus/Plan Next Note Type Treatment Note Next Visit Plan assess KT, continue to progress glute strength, assess step-up tolerance
--- NOTE | 2023-09-29 07:49 | PT-OP ANOTE ---
Addendum entered and electronically signed by Spring Luque, PT 09/29/23 08:18: Per front end driver: pt canceled this morning via text Original Note: No show- PT called and left voicemail reminding pt of next appt, cancellation/no show policy. 1st no show
--- NOTE | 2023-10-01 12:38 | PT.OTN ---
Current Diagnoses Other chronic pain (10/01/23) Pain in left knee (10/01/23) Personal history of (healed) traumatic fracture (10/01/23) Physical Therapy Treatment Note PT-OP-A Visit Information Start: 08/28/23 16:04 Freq: Status: Active Protocol: Document 10/01/23 07:36 NM (Rec: 10/01/23 08:20 NM [id number]) Out-Patient Physical Therapy Visit Information Visit Information Visit Type Treatment Note Visit Start Time 07:33 Visit Stop Time 08:15 Total Visit Minutes 42 Visit Number 05/17 PT-OP-B Current Condition Start: 08/28/23 16:04 Freq: Status: Active Protocol: Document 09/03/23 16:07 AM (Rec: 09/03/23 17:14 AM [id number]) Current Condition History of Current Condition Onset Date 2 years ago Current Complaints L knee pain History of Current Condition Pt with femur fracture 2 years ago. Pt was ziplining and the system failed, causing fracture. Pt reports that her L knee has been sore recently. Pain is primarily on the medial side of her knee. Pt reports that ascending stairs and squatting are painful. Pt reports that she has tried to workout or run, though her knee starts hurting and she quits. Prior Treatments and Tests Pt with recent MRI that was negative. PT-OP-C Subjective Start: 08/28/23 16:04 Freq: Status: Active Protocol: Document 10/01/23 07:36 NM (Rec: 10/01/23 08:20 NM [id number]) OP-PT Subjective Patient Comments Patient Comments Pt reports that she has no pain or stiffness today. She was able to complete a 6 mi hike without any pain over the weekend. She also reports that she hit her knee against an object last week, causing it to be painful and swollen for several days; this has since resolved. She is interested in reducing tmt to 1x.wk. PT-OP-D Balance Start: 08/28/23 16:04 Freq: Status: Active Protocol: Document 08/28/23 16:05 AM (Rec: 08/28/23 17:38 AM [id number]) Balance Tests Single Limb Standing Single Limb- Right 30 Single Limb- Left 30-no pain, though more report of unstable feeling PT-OP-E Functional Tests Start: 08/28/23 16:04 Freq: Status: Active Protocol: Document 08/28/23 16:05 AM (Rec: 08/28/23 17:38 AM [id number]) Functional Tests 30 Second Sit to Stand Test Score 13 PT-OP-G Mobility & Gait Start: 08/28/23 16:04 Freq: Status: Active Protocol: Document 08/28/23 16:05 AM (Rec: 08/28/23 17:38 AM [id number]) OP Gait Assessment Gait Gait Assistance Required: Independent Assistive Devices Assistive Device None Comments Gait Comments femoral MR PT-OP-J Posture/Palpation/Skin Start: 08/28/23 16:04 Freq: Status: Active Protocol: Document 08/28/23 16:05 AM (Rec: 08/28/23 17:38 AM [id number]) Posture Evaluation Position Standing Hip Posture (L) Internally Rotated,(R) Internally Rotated Knee Posture (L) Genu Recurvatum,(R) Genu Recurvatum,(L) Ext. Tibial Torsion,(R) Ext. Tibial Torsion Palpation Assessment Location knee Palpation Location medial joint line tenderness, adductors Palpation Findings Soft Tissue Tightness, Tenderness PT-OP-K Range of Motion Start: 08/28/23 16:04 Freq: Status: Active Protocol: Document 08/28/23 16:05 AM (Rec: 08/28/23 17:38 AM [id number]) Hip Goniometric Range of Motion Hip Right Passive Internal Rotation 40 External Rotation 45 Comments Prone for IR/ER Left Passive Flexion w/Knee Flexed 115 Internal Rotation 40 External Rotation 35 Comments prone for IR/ER Knee Goniometric Range of Motion Knee Right Knee ROM WFL Yes Flexion Active (degrees) 130 Left Knee ROM WFL Yes Patient Position Supine Flexion Active (degrees) 126 Extension Active (degrees) 0 PT-OP-M Strength Start: 08/28/23 16:04 Freq: Status: Active Protocol: Document 09/19/23 15:19 AM (Rec: 09/19/23 16:26 AM [id number]) Hip Strength Hip Manual Muscle Testing Left Flexion (L2) 4- Good- Abduction 3+ Fair+ External Rotation 3+ Fair+ Internal Rotation 3+ Fair+ Comments glute med 3+ No pain with IR/ER testing PT-OP-Q Treatments Start: 08/28/23 16:04 Freq: Status: Active Protocol: Document 10/01/23 07:36 NM (Rec: 10/01/23 08:20 NM [id number]) Cardio Equipment Elliptical Duration (Minutes) 4 Resistance 3 Other Reports some tenderness with medial R knee Gym Equipment Shuttle Recovery Unilateral squat Resistance 37# Shuttle Recovery Platform Stable Reps/Time 2x15 Bilateral squat Resistance 62# Shuttle Recovery Platform Stable Reps/Time 2x15, ball between knees for VMO activation Therapeutic Exercises Supine Exercises Bridge Supine Exercise Name Single leg bridge Side bilateral Reps/Minutes 2x10 Comments cues for glute squeeze with lift Standing Exercises single leg squat Side left Equipment Used right hand on stair rail for UE support/stability Reps/Minutes 1x10 Comments cues to sit back into chair, minisquat Side step Side bilateral Resistance 1. set teal tb 2nd set yellow tb around ankles Reps/Minutes 2x20ft Comments reports pain with teal band, no pain with yellow tb; cues for glute activat Step-up Standing Exercise Name trialed - painful Equipment Used 8 step Other Exercises Lunge Other Exercise Name lateral lunge Side bilateral Resistance 10 # theraball Reps/Minutes 1x12 Comments cues for butt back Monster Walk Side bilateral Resistance yellow tb around ankles Reps/Minutes 2x20 ft Comments fwd & retro x2 reps; cues for glute activation PT-OP-T Assessment and Plan Start: 08/28/23 16:04 Freq: Status: Active Protocol: Document 10/01/23 07:36 NM (Rec: 10/01/23 08:20 NM [id number]) Physical Therapy Assessment Rehab Potential Rehabilitation Potential Good Evaluation Complexity Number of Personal Factors/Comorbidities 0 Number of Body Systems Impaired 1-2 Clinical Presentation at Evaluation Stable Impairments Impairments Activity Tolerance,Balance, Functional Activities, Functional Mobility,Gait,Pain, Posture,ROM,Soft Tissue Mobility,Strength Goals Hip strength Impairment Pt with 3/5 hip IR, ER and glute med Short Term Goal (STG) Pt with 4- hip IR/ER and glute med strength 09/19/23: 3+ hip IR/ER and glute med STG Duration 09/25/23 Mandrel Cleaner Goal (LTG) Pt with 4/5-4+/5 hip strength. LTG Duration 10/23/23 Running Impairment Pt unable to run without production of pain at medial knee. Short Term Goal (STG) Pt able to interval run for 1 mile without increase in L knee pain. 09/19/23: Pt continues to have discomfort with at darryn knee with running. STG Duration 09/25/23 Senior Living Goal (LTG) Pt able to run 1-2 miles without increase in L knee pain. LTG Duration 10/23/23 LEFS Impairment Pt with score of 65/80 on IE. Mandrel Cleaner Goal (LTG) Pt with score of 75/80 on LEFS LTG Duration 10/23/23 Assessment Summary Assessment Pt tolerated treatment well. She does not report any medial knee pain during exercises with exception of during elliptical and step up. Continued to progress resistance exercises targeting quads and glutes to encourage greater muscle activation and strength. Added more single leg activities to prevent LLE compensation and promote better strengthening of R knee . HEP updated to include SL bridge, squat hold, monster walk, and lateral lunge. Pt would benefit from skilled PT to address impairments in quad /glute strength, improve activity tolerance, and progressively load her RLE in order to PLOF. Physical Therapy Plan Frequency and Duration Frequency of Treatment 2x/Week Duration of treatment (weeks) 8 Plan of Care Start Date 08/28/23 Plan of Care End Date 10/23/23 Therapeutic Interventions Therapeutic Interventions Balance Training,Gait Training ,Home Exercise Program,Joint Mobilizations,Manual Therapy, Neuromuscular Re-education, Patient/Caregiver Education, Self-Care/Home Management,Soft Tissue Mobilization,Taping, Therapeutic Activities, Therapeutic Exercises Modalities Cold Pack/Ice Massage,Electric Stimulation,Hot Packs, Ultrasound Next Visit Focus/Plan Next Note Type Treatment Note Next Visit Plan continue to progress glute strength, assess step-up tolerance
--- NOTE | 2023-10-10 08:00 | PT.OPDS ---
Current Diagnoses Other chronic pain (10/01/23) Pain in left knee (10/01/23) Personal history of (healed) traumatic fracture (10/01/23) Visit Care Team Role Provider Type BENJA Duran, [employer] DEVELOPER-[place] Family Provider Non-Staff Primary Care Provider Specialty: Family Practice Address: [address] [place] [address], [address], [place], [address] Email: BENJA Castrejon Attending Provider Non-Staff Referring Provider Specialty: Family Practice Address: [address] [place] [address], [id number] Email: Visit Number Visit Number 05/17 Discharge Summary PT-OP-B Current Condition Start: 08/28/23 16:04 Freq: Status: Active Protocol: Document 09/03/23 16:07 AM (Rec: 09/03/23 17:14 AM [id number]) Current Condition History of Current Condition Onset Date 2 years ago Current Complaints L knee pain History of Current Condition Pt with femur fracture 2 years ago. Pt was ziplining and the system failed, causing fracture. Pt reports that her L knee has been sore recently. Pain is primarily on the medial side of her knee. Pt reports that ascending stairs and squatting are painful. Pt reports that she has tried to workout or run, though her knee starts hurting and she quits. Prior Treatments and Tests Pt with recent MRI that was negative. PT-OP-C Subjective Start: 08/28/23 16:04 Freq: Status: Active Protocol: Document 10/01/23 07:36 NM (Rec: 10/01/23 08:20 NM [id number]) OP-PT Subjective Patient Comments Patient Comments Pt reports that she has no pain or stiffness today. She was able to complete a 6 mi hike without any pain over the weekend. She also reports that she hit her knee against an object last week, causing it to be painful and swollen for several days; this has since resolved. She is interested in reducing tmt to 1x.wk. PT-OP-D Balance Start: 08/28/23 16:04 Freq: Status: Active Protocol: Document 08/28/23 16:05 AM (Rec: 08/28/23 17:38 AM [id number]) Balance Tests Single Limb Standing Single Limb- Right 30 Single Limb- Left 30-no pain, though more report of unstable feeling PT-OP-E Functional Tests Start: 08/28/23 16:04 Freq: Status: Active Protocol: Document 08/28/23 16:05 AM (Rec: 08/28/23 17:38 AM [id number]) Functional Tests 30 Second Sit to Stand Test Score 13 PT-OP-G Mobility & Gait Start: 08/28/23 16:04 Freq: Status: Active Protocol: Document 08/28/23 16:05 AM (Rec: 08/28/23 17:38 AM [id number]) OP Gait Assessment Gait Gait Assistance Required: Independent Assistive Devices Assistive Device None Comments Gait Comments femoral MR PT-OP-J Posture/Palpation/Skin Start: 08/28/23 16:04 Freq: Status: Active Protocol: Document 08/28/23 16:05 AM (Rec: 08/28/23 17:38 AM [id number]) Posture Evaluation Position Standing Hip Posture (L) Internally Rotated,(R) Internally Rotated Knee Posture (L) Genu Recurvatum,(R) Genu Recurvatum,(L) Ext. Tibial Torsion,(R) Ext. Tibial Torsion Palpation Assessment Location knee Palpation Location medial joint line tenderness, adductors Palpation Findings Soft Tissue Tightness, Tenderness PT-OP-K Range of Motion Start: 08/28/23 16:04 Freq: Status: Active Protocol: Document 08/28/23 16:05 AM (Rec: 08/28/23 17:38 AM [id number]) Hip Goniometric Range of Motion Hip Right Passive Internal Rotation 40 External Rotation 45 Comments Prone for IR/ER Left Passive Flexion w/Knee Flexed 115 Internal Rotation 40 External Rotation 35 Comments prone for IR/ER Knee Goniometric Range of Motion Knee Right Knee ROM WFL Yes Flexion Active (degrees) 130 Left Knee ROM WFL Yes Patient Position Supine Flexion Active (degrees) 126 Extension Active (degrees) 0 PT-OP-M Strength Start: 08/28/23 16:04 Freq: Status: Active Protocol: Document 09/19/23 15:19 AM (Rec: 09/19/23 16:26 AM [id number]) Hip Strength Hip Manual Muscle Testing Left Flexion (L2) 4- Good- Abduction 3+ Fair+ External Rotation 3+ Fair+ Internal Rotation 3+ Fair+ Comments glute med 3+ No pain with IR/ER testing PT-OP-T Assessment and Plan Start: 08/28/23 16:04 Freq: Status: Active Protocol: Document 10/10/23 07:45 NM (Rec: 10/10/23 08:00 NM [id number]) Physical Therapy Assessment Rehab Potential Rehabilitation Potential Good Evaluation Complexity Number of Personal Factors/Comorbidities 0 Number of Body Systems Impaired 1-2 Clinical Presentation at Evaluation Stable Impairments Impairments Activity Tolerance,Balance, Functional Activities, Functional Mobility,Gait,Pain, Posture,ROM,Soft Tissue Mobility,Strength Goals Hip strength Impairment Pt with 3/5 hip IR, ER and glute med Short Term Goal (STG) Pt with 4- hip IR/ER and glute med strength 09/19/23: 3+ hip IR/ER and glute med STG Duration 09/25/23 Usp Goal (LTG) Pt with 4/5-4+/5 hip strength. LTG Duration 10/23/23 Running Impairment Pt unable to run without production of pain at medial knee. Short Term Goal (STG) Pt able to interval run for 1 mile without increase in L knee pain. 09/19/23: Pt continues to have discomfort with at darryn knee with running. STG Duration 09/25/23 Security Assurance Analyst Goal (LTG) Pt able to run 1-2 miles without increase in L knee pain. LTG Duration 10/23/23 LEFS Impairment Pt with score of 65/80 on IE. Security Assurance Analyst Goal (LTG) Pt with score of 75/80 on LEFS LTG Duration 10/23/23 Progress Towards Goals Progress Towards Goals Slow Progress due to Activity Tolerance,Slow Progress due to Attendance Issues Assessment Summary Assessment Pt was being seen in the clinic since 08/28/23 for knee pain. She has completed 6 treatment sessions since IE and canceled 3 appointments. At last PN, pt was progressing with B hip and knee strengthening for improved stability during activity, cydney running. However, she reports that she has been unable to return to full participation in running or higher intensity exercise due to L knee pain. As of her last appt on 10/01, pt has not met any STGs or LTGs. On 10/08/23, pt called requesting to discharge from PT services as PT is not working for her at this time. She canceled all remaining appointments. Pt will be discharged from PT and was instructed to contact her PCP for a new referral to begin a new episode of care if she would like to resume PT in the future or if symptoms change/ worsen. Physical Therapy Plan Frequency and Duration Frequency of Treatment 2x/Week Duration of treatment (weeks) 8 Plan of Care Start Date 08/28/23 Plan of Care End Date 10/23/23 Therapeutic Interventions Therapeutic Interventions Balance Training,Gait Training ,Home Exercise Program,Joint Mobilizations,Manual Therapy, Neuromuscular Re-education, Patient/Caregiver Education, Self-Care/Home Management,Soft Tissue Mobilization,Taping, Therapeutic Activities, Therapeutic Exercises Modalities Cold Pack/Ice Massage,Electric Stimulation,Hot Packs, Ultrasound Discharge Physical Therapy Discharge Reasons Patient Request Discharge Comments Pt called on 10/08/23 requesting to discharge from PT services Next Visit Focus/Plan Next Note Type Treatment Note Next Visit Plan Discharged from PT services
== END 2023-10-13 13:52 | disposition home or self-care (01) ==
LOC: PHYS 07:30
PROVIDERS: Family Provider Nurse Practitioner Family; PCP Nurse Practitioner Family; Referring Provider Nurse Practitioner Family; Visit Provider Nurse Practitioner Family
DX: M25.562 Pain in left knee (principal); G89.29 Other chronic pain; Z87.81 Personal history of (healed) traumatic fracture
CPT/HCPCS: 97110; 97140; 97161

== ENCOUNTER → 2024-06-14 08:40 | Outpatient (CLI) | payer OTHER, SELFPAY | PROVIDERS: Family Provider Nurse Practitioner Family; PCP Nurse Practitioner Family; Visit Provider Physician Assistant Surgical | DX: R10.9 Unspecified abdominal pain (principal); R19.7 Diarrhea, unspecified | CPT/HCPCS: 87086; 87205 ==

== ENCOUNTER → 2024-06-14 10:19 | Outpatient (CLI) | payer OTHER, SELFPAY ==
[2024-06-14 14:08] LABS: Occult Blood 1 Negative (Negative)
[2024-06-14 14:09] LABS: Occult Blood 2 Negative (Negative); Occult Blood 3 Negative (Negative)
[2024-06-14 14:56] LABS: Clostridium Difficile Tox PCR Negative for C. diff (Negative)
== END ==
PROVIDERS: Family Provider Nurse Practitioner Family; PCP Nurse Practitioner Family; Referring Provider Physician Assistant Surgical; Visit Provider Physician Assistant Surgical
DX: K92.1 Melena (principal); R19.7 Diarrhea, unspecified; R10.9 Unspecified abdominal pain
CPT/HCPCS: 82270; 87045; 87086; 87177; 87205; 87329; 87493

== ENCOUNTER → 2025-07-09 07:42 | Outpatient (CLI) | payer OTHER, SELFPAY | PROVIDERS: Family Provider Nurse Practitioner Family; PCP Nurse Practitioner Family; Visit Provider Nurse Practitioner Family | DX: R30.0 Dysuria (principal) | CPT/HCPCS: 87086 ==